=== PATIENT | male | born 1990 | race Two or more races ===

== ENCOUNTER 2017-09-29 11:46 | Observation (INO) | payer OTHER, SELFPAY ==
[2017-09-29] MEDS ORDERED: DIPH,PERTUSS(ACELL),TET VAC/PF 0.5 ML IM-VACC ONE ×3 (12:00→12:44)
[2017-09-29] MEDS ORDERED: SERT100T5 PO (12:16)
[2017-09-29] MEDS ORDERED: TRAZ100T15 PO (12:16)
[2017-09-29] MEDS ORDERED: RISP3TAB3 PO (12:16)
[2017-09-29 12:23] LABS: HEMATOCRIT 52.7 % (39.2-51.8); HEMOGLOBIN 17.8 g/dL (13.7-18.0); WHITE BLOOD COUNT 15.2 x10^3/uL (3.4-10)
[2017-09-29 12:33] LABS: BLOOD UREA NITROGEN 18 mg/dL (7-18)
[2017-09-29 12:34] LABS: ACETAMINOPHEN < 2 mcg/mL (10-30)
[2017-09-29] MEDS ORDERED: LIDOCAINE 1%, 20ML ONE ×2 (12:41→12:43)
[2017-09-29] MEDS ORDERED: OXYcodone/APAP 5/325MG TABLET ONE (12:43)
[2017-09-29] MEDS ORDERED: LIDOCAINE 1%, 20ML SQ ONE (13:00)
[2017-09-29 16:09] LABS: DAU SCREEN DISCLAIMER
[2017-09-29] MEDS ORDERED: ONDANSETRON ODT 4 MG PO PRN (18:00)
[2017-09-29] MEDS ORDERED: HALOPERIDOL 5 MG TABLET PO PRN (18:00)
[2017-09-29] MEDS ORDERED: ZIPRASIDONE 20 MG INJ IM PRN (18:00)
[2017-09-29] MEDS ORDERED: ACETAMINOPHEN 325 MG TABLET PO PRN (18:00)
[2017-09-29] MEDS ORDERED: ZIPRASIDONE 20MG CAPSULE PO PRN (18:00)
[2017-09-29] MEDS ORDERED: DOCUSATE 100 MG CAPSULE PO PRN (18:00)
[2017-09-29] MEDS ORDERED: TRAZODONE 50MG TABLET PO PRN (18:00)
[2017-09-29] MEDS ORDERED: BISACODYL 10 MG SUPP PR PRN (18:00)
[2017-09-29] MEDS ORDERED: NICOTINE 7 MG/24 HR PATCH.TD24 TD SCH (18:00)
[2017-09-29] MEDS ORDERED: POTASSIUM CHLORIDE 20 MEQ TAB.ER.PRT PO ONE (18:00)
[2017-09-29] MEDS ORDERED: POTASSIUM CHLORIDE 20 MEQ TAB.ER.PRT ONE (18:21)
[2017-09-29] MEDS ORDERED: ZIPRASIDONE 20 MG INJ IM ONE (18:21)
[2017-09-29] MEDS ORDERED: TRAZODONE 100MG TABLET PO SCH (21:00)
[2017-09-29] MEDS ORDERED: RISPERIDONE 1 MG TABLET PO SCH (21:00)
[2017-09-30 04:48] LABS: HEMATOCRIT 53.3 % (39.2-51.8); HEMOGLOBIN 17.7 g/dL (13.7-18.0); WHITE BLOOD COUNT 9.6 x10^3/uL (3.4-10)
[2017-09-30 04:57] LABS: BLOOD UREA NITROGEN 18 mg/dL (7-18)
[2017-09-30] MEDS ORDERED: SERTRALINE 100MG TABLET PO SCH (09:00)
[2017-09-30 13:00] VITALS: BP 132/87
== END 2017-09-30 17:19 | disposition home or self-care (01) ==
LOC: ED 14:43 → EDIP 17:11
PROVIDERS: ADMIT Internal Medicine; ATTEND Internal Medicine
DX: R45.851 Suicidal ideations (principal); D72.829 Elevated white blood cell count, unspecified; E87.6 Hypokalemia; F20.9 Schizophrenia, unspecified
CPT/HCPCS: 36415; 73140; 80048; 80307; 80329; 82040; 85025; 90471; 90715; 96372; 99285; G0378; J3486; J3490; G0479; G0480